=== PATIENT | male | born 2000 | race Caucasian/White ===

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

== ENCOUNTER 2022-02-13 19:06 | Emergency (ER) | payer OTHER ==
[2022-02-13] MEDS ORDERED: CEPHALEXIN500 M1 PO (20:50)
== END 2022-02-13 21:14 | disposition home or self-care (01) ==
LOC: ED 19:06
DX: S61.210A Laceration without foreign body of right index finger without damage to nail, initial encounter (principal); W45.8XXA Other foreign body or object entering through skin, initial encounter; Y93.89 Activity, other specified; Y92.89 Other specified places as the place of occurrence of the external cause; Y99.8 Other external cause status